=== PATIENT | female | born 1955 | race Caucasian/White ===

== ENCOUNTER → 2020-09-10 08:59 | Outpatient (BNVA) | payer OTHER, SELFPAY | PROVIDERS: PCP Physician Assistant Medical; Visit Provider Internal Medicine Pulmonary Disease ==

== ENCOUNTER 2020-09-14 07:46 | Outpatient (REF) | payer OTHER, SELFPAY ==
--- NOTE | 2020-09-14 16:20 | PFT_ITS ---
FLOWS: FEV1 47% of predicted at 1.10 L. FVC 57% of predicted at 1.74 L. FEV1 to FVC ratio of 0.63. Positive bronchodilator response. LUNG VOLUMES: Total lung capacity 74% of predicted at 3.65 L. Residual volume 95% of predicted at 1.96 L. Slow vital capacity 59% of predicted at 1.68 L. Expiratory reserve volume 40% predicted at 0.29 L. Diffusion capacity is severely decreased, diffusion capacity adjust to being moderately decreased after correction for alveolar ventilation. IMPRESSION: Severe obstructive and severe restrictive ventilatory defect with positive bronchodilator response. Decreased expiratory reserve volume suggests extrathoracic restriction likely secondary to abdominal obesity. Decreased diffusion capacity suggests emphysema. MD ARIANNA Cardona/MODL / [id number]
== END 2020-09-14 07:47 | disposition home or self-care (01) ==
LOC: HO.RESP 07:46
PROVIDERS: PCP Physician Assistant Medical; Visit Provider Internal Medicine Pulmonary Disease
DX: J44.9 Chronic obstructive pulmonary disease, unspecified (principal)
CPT/HCPCS: 94060; 94727; 94729

== ENCOUNTER → 2020-09-17 08:25 | Outpatient (REF) | payer OTHER, SELFPAY ==
--- NOTE | 2020-09-17 08:29 | CA_ITS ---
Transthoracic Echocardiogram Patient (Last, First, Middle): Coty Dawson A Gender: Female Date of : 1955 Age: 65 Procedure Date: 09/17/2020 Procedure Type: Transthoracic Echocardiogram Location: OP Height: 160.02 cm Weight: 105.69 kg BSA: 2.06 m2 Heart Rate: bpm BP: 134 / 80 mmHg Job Checker: Referring MD: Claudio Lopez MD Symptoms: R06.00 - Dyspnea, unspecified Study Quality: Fair ECG Rhythm: Sinus Conclusions: - Normal left ventricular size and systolic function. There is moderately increased left ventricular wall thickness. The visually estimated ejection fraction is between 60-65%. - Normal right ventricular cavity size and systolic function. - Diastolic function is normal for age. - There is mild dilatation of the ascending aorta. Findings Left Ventricle Normal left ventricular size and systolic function. There is moderately increased left ventricular wall thickness. The visually estimated ejection fraction is between 60-65%. There is no evidence of regional wall motion abnormalities. Diastolic function is normal for age. Right Ventricle Normal right ventricular cavity size and systolic function. Atria The left atrium is mildly dilated. Aortic Valve The aortic valve was not well visualized. There is mild calcification of the aortic valve. There is no aortic valve stenosis. There is no aortic valve regurgitation. Mitral Valve Normal mitral valve structure and function. There is no mitral valve regurgitation. There is no mitral valve stenosis. Pulmonic Valve Normal pulmonic valve structure and function. There is trace pulmonic valve regurgitation. Tricuspid Valve Normal tricuspid valve structure and function. There is no tricuspid valve regurgitation. Normal right atrial pressure. There is no evidence of pulmonary hypertension. Great Vessels There is mild dilatation of the ascending aorta. The visualized portions of the pulmonary artery and branches are normal. Venous The inferior vena cava is normal in size and collapses greater than 50% with inspiration. Pericardium/Pleural There is no evidence of pericardial effusion. Prior Study Comparison No prior study available for comparison. Measurements 2D Linear Measurements IVSd: 1.21 0.6-0.9/0.6-1.0 cm LVIDd: 4.33 3.9-5.3/4.2-5.9 cm LVIDd Index: 2.10 2.4-3.2/2.2-3.1 cm/m2 LVIDs: 2.51 2.0-3.6 cm LVPWd: 1.15 0.7-1.1 cm Ao Root: 3.10 2.1-3.5 cm LA Diam: 2.80 2.7-3.8/3.0-4.0 cm LAIDs Index: 1.36 1.5-2.3 cm/m2 LV Mass: 226.96 67-162/88-224 g LV Mass Index: 110.18 43-95/49-115 g/m2 LVOT Diam: 2.20 3.0+(-)1.3 cm Mitral Valve MV Pk E: 0.61 MV PK A: 1.01 MV Decel Time: 187.00 E/A: 0.60 E'Lateral: 7.72 E'Medial: 7.07 E/E' Med: 8.70 E/E' Lat: 7.90 PHT: 55.00 MVA PHT: 4.00 Decel Jerauld: 3.27 Aortic Valve AoV Pk Derik: 1.48 AoV Mn Derik: 1.09 AoV VTI: 0.36 AoV Pk Grad: 9.00 Aov Mn Grad: 5.00 LIUDMILA Cont.VTI: 2.92 LVOT LVOT Pk Derik: 1.13 LVOT Mn Derik: 0.73 LVOT VTI: 0.28 LVOT Pk Grad: 5.00 LVOT Mn Grad: 3.00 LVOT Diam: 2.20 LVOT Area: 3.80 Diastolic Function MV Pk E: 0.61 MV Pk A: 1.01 E/A: 0.60 E'Medial: 7.07 E/E' Med: 8.70 E' Laterial: 7.72 E/E' Lat: 7.90 Right Ventricle TAPSE (mm): 32.00 TVS' Derik: 14.80 Tricuspid Valve TR Pk Derik: 1.58 TR Pk Grad: 10.00 RA Press: 3.00 RVSP: 13.00 Great Vessels Aorta Ao Root-2D: 3.10 2.0-3.7 cm Ao Asc: 3.20 2.1-3.4 cm Pulmonary Valve PV Pk Derik: 0.84 Peak PV Grad: 3.00 Updated in Other Vendor System with Status of Final Oh Hassan MD electronically signed on 09/19/2020 11:08:18 PM with status of Final
== END ==
LOC: HO.CARD 08:25
PROVIDERS: Visit Provider Internal Medicine Pulmonary Disease
DX: R06.00 Dyspnea, unspecified (principal)
CPT/HCPCS: 93306

== ENCOUNTER → 2020-10-20 09:11 | Outpatient (BNVA) | payer OTHER, SELFPAY | PROVIDERS: PCP Physician Assistant Medical; Visit Provider Internal Medicine Pulmonary Disease ==

== ENCOUNTER → 2020-11-17 08:48 | Outpatient (BNVA) | payer OTHER, SELFPAY | PROVIDERS: PCP Physician Assistant Medical; Visit Provider Internal Medicine Pulmonary Disease ==

== ENCOUNTER → 2021-04-21 09:39 | Outpatient (BNVA) | payer OTHER, SELFPAY | PROVIDERS: PCP Physician Assistant Medical; Visit Provider Internal Medicine Pulmonary Disease | DX: J44.9 Chronic obstructive pulmonary disease, unspecified (principal); Z85.118 Personal history of other malignant neoplasm of bronchus and lung; Z99.81 Dependence on supplemental oxygen | CPT/HCPCS: 94618 ==

== ENCOUNTER → 2021-06-28 08:52 | Outpatient (BNVA) | payer OTHER, SELFPAY | PROVIDERS: PCP Physician Assistant Medical; Visit Provider Internal Medicine Pulmonary Disease | DX: Z13.89 Encounter for screening for other disorder (principal) ==

== ENCOUNTER 2022-11-14 08:53 | Outpatient (AMB) | payer OTHER, SELFPAY ==
--- NOTE | 2022-11-14 08:56 | MHC.OFFVIS ---
Intake Vital Signs 11/14/22 08:57 Height 5 ft 3 in Weight 201 lb 15.211 oz BMI 35.8 BP 127/74 Blood Pressure Location Rt brachial Position Sitting Pulse 69 Pulse Source Doppler Pulse Oximetry (%) 100 Oxygen Delivery Method Nasal Cannula Oxygen Flow Rate 3 Intake Visit Reasons: copd Allergies cat dander [CATS] Allergy (Unknown, Verified 11/14/22 09:04) UNKNOWN SEASONAL ALLERGIES Allergy (Unknown, Uncoded 10/30/19 16:16) WHEEZING,COUGH HPI copd HPI Details 67-year-old lady, with underlying severe supplemental oxygen 3 L dependent COPD, prior history of right upper lobe wedge resection for stage I [id number] lung cancer and SBRT to the left upper lobe, and again XRT for the right upper lobe lesion, now with possible recurrence, continues to follow with radiation oncology.? After the last office visit patient had to stop prednisone secondary to gastritis. She continues to use with DuoNebs 2 to 3 times a day, though sometimes with significant dyspnea on exertion. She denies recent acute exacerbations. Review of Systems Const Denies daytime sleepiness, Denies excessive sweating, Denies fatigue, Denies fever(s), Denies lethargy, Denies malaise, Denies night sweats, Denies snoring and Denies weight loss Eyes Denies blurry vision and Denies itchy eyes ENT Denies nasal congestion, Denies post nasal drip, Denies sinus pain, Denies sinus pressure and Denies other ( Thrush) Card Denies chest pain, Denies pedal edema, Denies dyspnea, Reports dyspnea on exertion, Denies orthopnea and Denies paroxysmal nocturnal dyspnea Resp Denies cough, Denies hemoptysis, Denies excessive phlegm production, Denies dyspnea, Reports dyspnea on exertion, Denies snoring and Denies wheezing GI Denies abdominal pain and Denies heartburn Musc Denies myalgias, Denies arthralgias and Denies joint swelling Skin/Breast Denies rash Neuro Denies memory loss and Denies seizure-like activity Psych Denies abnormal sleep pattern, Denies anxiety and Denies memory loss Endo Denies excessive sweating, Denies fatigue and Denies heat intolerance Corbin/Lymph Denies easy bruising Aller/Immun Denies itchy eyes, Denies seasonal rhinorrhea and Denies wheezing Physical Exam Vital Signs: Last Vital Signs Pulse 69 10/03/23 08:57 BP 127/74 11/14/22 08:57 Pulse Ox 100 11/14/22 08:57 Oxygen Delivery Method Nasal Cannula 11/14/22 08:57 Oxygen Flow Rate 3 11/14/22 08:57 BMI result Body Mass Index 35.8 Const General: no acute distress and alert Nutritional Appearance: not obese Orientation/consciousness: Other orientation findings ( oriented) HEENT Head: Yes atraumatic Eyes General: appearance normal, both eyes and all related structures Sclerae: sclerae normal EOM: EOMs intact bilaterally Neck Neck: Yes supple Lymphatic: no lymphadenopathy noted Resp Effort & Inspection: normal respiratory effort and no use of accessory muscles Auscultation: clear to auscultation bilaterally Cardio Rate: regular rate Rhythm: regular rhythm Heart sounds: no gallops, no murmurs and no rubs Skin General skin exam: other ( warm) Extrem General: No clubbing, No cyanosis and No edema Assessment & Plan Assessment & Plan (1) COPD (chronic obstructive pulmonary disease): Code(s): J44.9 - Chronic obstructive pulmonary disease, unspecified Plan: Now with slowly worsening control on DuoNebs, unable to tolerate prednisone. No benefit from theophylline. Will add Brovana. (2) Supplemental oxygen dependent: Code(s): Z99.81 - Dependence on supplemental oxygen Plan: Continues plan mental oxygen to maintain O2 saturation of 88-93%. Medications: New arformoterol (Brovana) 2 mL inhalation BID 120 mL 6RF 30 days Coding Level of Care Code Est Pt Level 4 (96132) Diagnoses COPD (chronic obstructive pulmonary disease) J44.9 Supplemental oxygen dependent Z99.81
[2022-11-14 08:57] VITALS: BP 127/74; PULSE 69; O2SAT 100; BMI 35.8
== END 2022-11-14 09:24 | disposition home or self-care (01) ==
PROVIDERS: PCP Physician Assistant Medical; Visit Provider Internal Medicine Pulmonary Disease
DX: J44.9 Chronic obstructive pulmonary disease, unspecified (principal); Z99.81 Dependence on supplemental oxygen
CPT/HCPCS: 99214

== ENCOUNTER → 2022-11-14 08:53 | Outpatient (BNVA) | payer OTHER, SELFPAY | PROVIDERS: PCP Physician Assistant Medical; Visit Provider Internal Medicine Pulmonary Disease ==

== ENCOUNTER 2023-07-17 08:48 | Outpatient (AMB) | payer OTHER, SELFPAY ==
[2023-07-17 08:55] VITALS: BP 132/70; PULSE 75; O2SAT 98; BMI 39.3
--- NOTE | 2023-07-17 08:55 | A.OFFVIS_ITS ---
Vital Signs 07/17/23 08:55 Height 5 ft 3 in Weight 222 lb BMI 39.3 BP 132/70 Blood Pressure Location Lt brachial Position Sitting Pulse 75 Pulse Source Doppler Pulse Oximetry (%) 98 Oxygen Delivery Method Nasal Cannula Oxygen Flow Rate 3 Intake Visit Reasons: copd Allergies cat dander [CATS] Allergy (Unknown, Verified 07/17/23 09:01) UNKNOWN SEASONAL ALLERGIES Allergy (Unknown, Uncoded 10/30/19 16:16) WHEEZING,COUGH HPI HPI copd: Details: 68-year-old lady, with underlying severe supplemental oxygen 3 L dependent COPD, prior history of right upper lobe wedge resection for stage I [id number] lung cancer and SBRT to the left upper lobe, and again XRT for the right upper lobe lesion, now with status post recent additional bronchoscopic biopsy at [place] with no malignancy identified.? Patient has been using duo nebs, though mostly once a day. She has also tried Brovana, but is not sure was at provide any symptomatic benefit. Patient also uses Symbicort and Spiriva with suboptimal control of her symptoms. Review of Systems Const Denies daytime sleepiness, Denies excessive sweating, Denies fatigue, Denies fever(s), Denies lethargy, Denies malaise, Denies night sweats, Denies snoring and Denies weight loss Eyes Denies blurry vision and Denies itchy eyes ENT Denies nasal congestion, Denies post nasal drip, Denies sinus pain, Denies sinus pressure and Denies other ( Thrush) Card Denies chest pain, Reports pedal edema, Reports dyspnea, Reports dyspnea on exertion, Denies orthopnea and Denies paroxysmal nocturnal dyspnea Resp Reports cough, Denies hemoptysis, Denies excessive phlegm production, Reports dyspnea, Reports dyspnea on exertion, Denies snoring and Denies wheezing GI Denies abdominal pain and Denies heartburn Musc Denies myalgias, Denies arthralgias and Denies joint swelling Skin/Breast Denies rash Neuro Denies memory loss and Denies seizure-like activity Psych Denies abnormal sleep pattern, Denies anxiety and Denies memory loss Endo Denies excessive sweating, Denies fatigue and Denies heat intolerance Corbin/Lymph Denies easy bruising Aller/Immun Denies itchy eyes, Denies seasonal rhinorrhea and Denies wheezing Physical Exam Vital Signs: Last Vital Signs Pulse 75 07/17/23 08:55 BP 132/70 07/17/23 08:55 Pulse Ox 98 07/17/23 08:55 Oxygen Delivery Method Nasal Cannula 07/17/23 08:55 Oxygen Flow Rate 3 07/17/23 08:55 BMI result Body Mass Index 39.3 Const General: no acute distress and alert Nutritional Appearance: obese Orientation/consciousness: Other orientation findings ( oriented) HEENT Head: Yes atraumatic Eyes General: appearance normal, both eyes and all related structures Sclerae: sclerae normal EOM: EOMs intact bilaterally Neck Neck: Yes supple Lymphatic: no lymphadenopathy noted Resp Effort & Inspection: normal respiratory effort and no use of accessory muscles Auscultation: clear to auscultation bilaterally Cardio Rate: regular rate Rhythm: regular rhythm Heart sounds: no gallops, no murmurs and no rubs Skin General skin exam: other ( warm) Extrem General: No clubbing, No cyanosis and Yes edema (2+ bilateral) Assessment & Plan Assessment & Plan (1) Dyspnea on exertion: Code(s): R06.00 - Dyspnea, unspecified Category: Medical Plan: Appears to be multifactorial with contribution from underlying pulmonary, possible cardiac obesity/deconditioning etiologies. If not improving regular b ronchodilators, will consider further cardiac workup. (2) COPD (chronic obstructive pulmonary disease): Code(s): J44.9 - Chronic obstructive pulmonary disease, unspecified Category: Medical Plan: Suboptimal control as patient suboptimal compliant with bronchodilators. Patient has been advised to adhere to bronchodilator regimen. Continue duo nebs, Brovana, Symbicort, and Spiriva. (3) Supplemental oxygen dependent: Code(s): Z99.81 - Dependence on supplemental oxygen Category: Medical Plan: Continue supplemental oxygen to maintain O2 saturation of 88-92%. Coding Level of Care Code Est Pt Level 4 (81469) Diagnoses Dyspnea on exertion R06.00 COPD (chronic obstructive pulmonary disease) J44.9 Supplemental oxygen dependent Z99.81
== END 2023-07-17 09:24 | disposition home or self-care (01) ==
PROVIDERS: PCP Physician Assistant Medical; Visit Provider Internal Medicine Pulmonary Disease
DX: R06.00 Dyspnea, unspecified (principal); J44.9 Chronic obstructive pulmonary disease, unspecified; Z99.81 Dependence on supplemental oxygen
CPT/HCPCS: 99214

== ENCOUNTER → 2023-07-17 08:48 | Outpatient (BNVA) | payer OTHER, SELFPAY | PROVIDERS: PCP Physician Assistant Medical; Visit Provider Internal Medicine Pulmonary Disease ==